=== PATIENT | male | born 1990 | race Caucasian/White ===

== ENCOUNTER 2024-02-19 19:33 | Emergency (ER) | payer SELFPAY ==
[2024-02-19 21:01] LABS: Absolute Basophils 0.1 K/uL (0-0.5); Absolute Eosinophils 0.2 K/uL (0-0.5); Absolute Lymphocytes (CBC) 1.9 K/uL (0.7-4.9); Absolute Monocytes 0.6 K/uL (0.1-1.3); Absolute Neutrophil 9.3 K/uL (1.8-8.0); Basophils % 0.5 % (0-1.3); Eosinophils % 1.4 % (0-4.4); Hematocrit 41.9 % (39.6-49.0); Hemoglobin 13.3 g/dL (13.6-17.9); Lymphocytes % 15.8 % (15.3-44.8); MCH 24.6 pg (27.0-35.0); MCHC 31.8 g/dL (32.0-36.0); MCV 77.2 fL (80-100); MPV 9.1 fL (7.6-11.3); Monocytes % 4.8 % (3.3-12.3); Neutrophils % 77.5 % (41.7-73.7); Platelets 225 thou/uL (152-406); RBC Red Blood Cell Count 5.43 M/uL (4.33-5.43)
[2024-02-19 21:04] LABS: Specific Gravity > 1.030 (1.005-1.030); Sqamous Epithelial <5 /HPF (None Seen); Urine Bacteria None Seen /HPF (<20); Urine Bilirubin NEGATIVE (Negative); Urine Blood Negative (Negative); Urine Clarity Clear (Clear); Urine Color Yellow (Yellow); Urine Culture Reflex Order NOT NEEDED; Urine Glucose TRACE (Negative); Urine Ketones TRACE (Negative); Urine Microscopic Reflex YN ORDER UMIC; Urine Mucus 2+ /HPF (None Seen); Urine Nitrite NEGATIVE (Negative); Urine Protein 1+ (Negative); Urine RBC <5 /HPF (None Seen); Urine Urobilinogen 1+ (Normal); Urine WBC <5 /HPF (<5)
[2024-02-19] MEDS ORDERED: NA CHLORIDE 0.9% 0 ML ONE (21:05)
[2024-02-19 21:21] LABS: C-Reactive Protein 36.4 mg/L (<3.00)
[2024-02-19 21:22] LABS: Albumin 2.9 g/dL (3.4-5.0); Albumin/Globulin Ratio 0.7 (1.1-1.8); Anion Gap 7.5 mEq/L (5.0-15.0); Bilirubin Total 0.4 mg/dL (0.2-1.0); Globulin 4.4 g/dL (2.3-3.5); Protein, Total 7.3 g/dL (6.4-8.2)
[2024-02-19 21:25] LABS: Potassium 4.5 mEq/L (3.5-5.1)
--- NOTE | 2024-02-19 22:31 | RAD REPORT ---
EXAMINATION: CT Abdomen Pelvis W Contrast CLINICAL INDICATION: Male, 33 years old. ABD PAIN TECHNIQUE: CT abdomen and pelvis was performed, after the administration of IV [facility] Axial, sagittal and coronal reconstructions were obtained. One or more of the following dose reduction techniques were used: Automated exposure control, adjustment of the mA and k V according to patient size, and iterative reconstruction. Unless otherwise specified, incidental findings do not require dedicated imaging follow-up. COMPARISON: No prior exam. FINDINGS: LOWER CHEST: The visualized lung bases are clear. LIVER: Mild fatty liver is present. No focal lesion or biliary dilatation is seen. BILIARY SYSTEM: No suspicious abnormalities. SPLEEN: Normal size. No focal lesion. PANCREAS: No mass, ductal dilation, or kingsley-pancreatic fluid. ADRENALS: Normal; no mass. KIDNEYS: Normal size and preserved corticomedullary differentiation. Numerous bilateral cortical hypo attenuating lesions, largest on the right is exophytic, measuring 2.5 cm, with another interpolar 2.5 cm juxtacortical lesion. All lesions demonstrate fluid density although some are less than 1 cm i n size, limiting evaluation. No hydronephrosis. URINARY BLADDER: Decompressed limiting evaluation.. GASTROINTESTINAL TRACT: Focal inflammatory changes involving the proximal to mid sigmoid colon center ed on a diverticulum projecting anteroinferiorly. No adjacent fluid collections or extraluminal gas. Moderate burden of colonic diverticula throughout the distal colon. No evidence of free air, sig nificant intra-abdominal free fluid, bowel obstruction or abscess. APPENDIX: Normal appendix. LYMPH NODES: No lymphadenopathy. MUSCULOSKELETAL: No acute or suspicious osseous abnormality. ADDITIONAL FINDINGS: None. IMPRESSION: Findings of acute uncomplicated proximal to mid sigmoid diverticulitis. Numerous renal cysts. Some of these are less than 1 cm in size, limiting evaluation. Mild diffuse hepatic steatosis.
[2024-02-19] MEDS ORDERED: NA CHLORIDE 0.9% 1,000 ML ONE (22:35)
--- NOTE | 2024-02-20 00:36 | ER ---
Nurse's Notes [facility] Name: Cristian John Age: 33 yrs Sex: Male : 1990 Arrival Date: 02/19/2024 Time: 19:33 Bed 12 Private MD: Diagnosis: Diverticulitis of small intestine without perforation or abscess without bleeding;Acute Diverticulitis , Multiple Renal Cysts, Elevated blood sugar Presentation: 02/18 19:52 Chief complaint: Patient states: FLANK PAIN THAT RADIATES TO HIS ABDOMEN ONSET 1 WEEK cm10 AGO. PT ALSO REPORTS BURNING WITH URINATION. Coronavirus screen: Client denies travel out of the [place] in the last 14 days. Ebola Screen: Patient denies travel to an Ebola-affected area in the 21 days before illness onset. Initial Sepsis Screen: Does the patient meet any 2 criteria? HR > 90 bpm. Does the patient have a suspected source of infection? No. Patient's initial sepsis screen is negative. Risk Assessment: Do you want to hurt yourself or someone else? Patient reports no desire to harm self or others. Onset of symptoms was February 19, 2024. 19:52 Method Of Arrival: Ambulatory cm10 19:52 Acuity: DERRELL 3 cm10 Triage Assessment: 19:53 General: Appears in no apparent distress. uncomfortable, Behavior is calm, cooperative. cm10 Neuro: No deficits noted. Level of Consciousness is awake, alert, obeys commands, Oriented to person, place, time, situation, Appropriate for age. Respiratory: No deficits noted. Airway is patent Respiratory effort is even, unlabored, Respiratory pattern is regular, symmetrical. Historical: - Allergies: 19:53 No Known Allergies; cm10 - PMHx: 19:53 Diverticulitis; cm10 - Immunization history:: Adult Immunizations up to date. - Infectious Disease History:: Denies. - Social history:: Smoking status: Patient reports the use of cigarette tobacco products, denies chronic smoking, but will smoke occasionally. - Family history:: not pertinent. Screenin/17 00:00 [facility] ED Fall Risk Assessment (Adult) History of falling in the last 3 months, ha1 including since admission No falls in past 3 months (0 pts) Confusion or Disorientation No (0 pts) Intoxicated or Sedated No (0 pts) Impaired Gait No (0 pts) Mobility Assist Device Used No (0 pt) Altered Elimination No (0 pt) Score/Fall Risk Level 0 - 2 = Low Risk Oriented to surroundings, Maintained a safe environment, Educated pt \T\ family on fall prevention, incl call for assistance when getting out of bed, Hourly rounding (assess needs \T\ fall precautionary measures) done. Abuse screen: Denies threats or abuse. Denies injuries from another. Nutritional screening: No deficits noted. Tuberculosis screening: No symptoms or risk factors identified. Assessment: 02/18 21:00 Reassessment: Patient and/or family updated on plan of care and expected duration. Pain ha1 level reassessed. Patient is alert, oriented x 3, equal unlabored respirations, skin warm/dry/pink. 21:00 General: Appears comfortable, Behavior is calm, cooperative. Pain: Complains of pain in ha1 pelvis Pain radiates to back Pain currently is 4 out of 10 on a pain scale. Quality of pain is described as burning. Neuro: Level of Consciousness is awake, alert, obeys commands, Oriented to person, place, time, situation. Cardiovascular: Patient's skin is warm and dry. Respiratory: Airway is patent Respiratory effort is even, unlabored, Respiratory pattern is regular, symmetrical. GI: Abdomen is round non-distended, obese, Bowel sounds present X 4 quads. Abd is soft and non tender. 22:00 Reassessment: Patient and/or family updated on plan of care and expected duration. Pain ha1 level reassessed. Patient is alert, oriented x 3, equal unlabored respirations, skin warm/dry/pink. 23:00 Reassessment: Patient and/or family updated on plan of care and expected duration. Pain ha1 level reassessed. Patient is alert, oriented x 3, equal unlabored respirations, skin warm/dry/pink. Patient states symptoms have improved. 02/19 01:16 Reassessment: DISCHARGE PENDING ON MEDICATION TO BE COMPLETED. ha1 01:42 Reassessment: Patient and/or family updated on plan of care and expected duration. Pain ha1 level reassessed. Patient is alert, oriented x 3, equal unlabored respirations, skin warm/dry/pink. Vital Signs: 02/18 19:52 BP 152 / 99; Pulse 98; Resp 18; Temp 99.5(O); Pulse Ox 99% on R/A; Weight 154.22 kg; cm10 Height 6 ft. 3 in. ; Pain 3/10; 21:00 BP 150 / 98; Pulse 97; Resp 18 S; Pulse Ox 98% on R/A; ha1 23:00 BP 146 / 94; Pulse 90; Resp 18 S; Pulse Ox 98% on R/A; ha1 02/19 01:20 BP 147 / 87; Pulse 84; Resp 18 S; Temp 97.8(T); Pulse Ox 98% on R/A; ha1 02/18 19:52 Body Mass Index 42.50 (154.22 kg, 190.5 cm) cm10 02/18 19:52 Pain Scale: Adult cm10 [place] Coma Score: 05:13 Eye Response: spontaneous(4). Motor Response: obeys commands(6). Verbal Response: sp4 oriented(5). Total: 15. ED Course: 02/18 19:36 Patient arrived in ED. im 19:53 Triage completed. cm10 19:53 Arm band placed on left wrist. Patient placed in an exam room. cm10 20:00 Patient has correct armband on for positive identification. Bed in low position. Call ha1 light in reach. Side rails up X 1. Adult w/ patient. 20:04 Kevin Brown MD is Attending Physician. sp4 20:56 Inserted saline lock: 20 gauge in right antecubital area, using aseptic technique. oe Blood collected. Flushed with 10 mL NS. 21:08 Joseline Addison, JUDY is Primary Nurse. ha1 22:00 CT Abd/Pelvis - IV Contrast Only In Process Unspecified. EDMS 02/19 00:31 Nick Tuttle MD is Referral Physician. sp4 01:43 No provider procedures requiring assistance completed. Patient did not have IV access ha1 during this emergency room visit. 01:44 Provided Education on: FOLLOW UPS AND MEDICATION ADMINISTRATION . ha1 Administered Medications: 02/18 21:13 Drug: NS 0.9% IV 1000 ml IV at 1 bolus Per protocol; to be given as a bolus over 60 ha1 minutes Route: IV; Rate: 1 bolus; Site: right antecubital; 02/19 01:04 Follow up: Response: No adverse reaction; IV Status: Completed infusion; IV Intake: ha1 1000ml 00:40 Drug: Rocephin - Rocephin (cefTRIAXone) IVPB 1 grams IVPB once over 30 mins; (mix in 50 ha1 mL NS) Route: IVPB; Infused Over: 30 mins; Site: right antecubital; 00:48 Follow up: Response: No adverse reaction; IV Status: Completed infusion; IV Intake: [id number] 00:48 Drug: metroNIDAZOLE IVPB 500 mg 100 ml IVPB at 200 ml/hr once over 30 mins Volume: 100 ha1 ml; Route: IVPB; Rate: 200 ml/hr; Infused Over: 30 mins; Site: right antecubital; 01:42 Follow up: Response: No adverse reaction; IV Status: Completed infusion; IV Intake: ha1 100ml Medication: 01:44 VIS not applicable for this client. ha1 Intake: 00:48 IV: 50ml; Total: 50ml. ha1 01:04 IV: 1000ml; Total: 1050ml. ha1 01:42 IV: 100ml; Total: 1150ml. ha1 Outcome: 00:36 Discharge ordered by MD. newell 01:43 Discharged to home ambulatory, with family, ha1 01:43 Condition: stable 01:43 Discharge instructions given to patient, family, Instructed on discharge instructions, follow up and referral plans. medication usage, Demonstrated understanding of instructions, follow-up care, medications, Prescriptions given X 2, 01:45 Patient left the ED. ha1 Signatures: Dispatcher [employer] EDMS Cody Wang Heidy RN RN ha1 Kevin Brown MD MD sp4 Leigh Davis Clarissa RN RN cm10
--- NOTE | 2024-02-20 00:36 | EDPHYS ---
Physician Documentation [facility] Name: Cristian John Age: 33 yrs Sex: Male : 1990 Arrival Date: 02/19/2024 Time: 19:33 Bed 12 Private MD: ED Physician Kevin Brown HPI: 02/18 20:04 This 33 yrs old Male presents to ER via Ambulatory with complaints of Pain sp4 With Urination, Flank Pain, Abdominal Pain, Nausea. 02/19 05:13 33-year-old male with history of prior diverticulitis presents with complaint of sp4 bilateral flank pain for approximately 1 week. Patient reports night sweats and dysuria also pain radiating to his groin. Patient does report some diffuse abdominal pain.. Historical: - Allergies: 02/18 19:53 No Known Allergies; cm10 - PMHx: 19:53 Diverticulitis; cm10 - Immunization history:: Adult Immunizations up to date. - Infectious Disease History:: Denies. - Social history:: Smoking status: Patient reports the use of cigarette tobacco products, denies chronic smoking, but will smoke occasionally. - Family history:: not pertinent. ROS: 02/19 05:13 Constitutional: Negative for fever, chills, and weight loss, positive bilateral flank sp4 pain, positive lower abdominal pain, positive groin pain. All other systems are negative, Exam: 05:13 Constitutional: This is a well developed, well nourished patient who is awake, alert, sp4 and in no acute distress. Patient is overweight male. Head/Face: Normocephalic, atraumatic. Eyes: Pupils equal round and reactive to light, extra-ocular motions intact. Lids and lashes normal. Conjunctiva and sclera are not injected. Cornea within normal limits. Periorbital areas with no swelling, redness, or edema. ENT: Nares patent. No nasal discharge, no septal abnormalities noted. Tympanic membranes are normal and external auditory canals are clear. Oropharynx with no redness, swelling, or masses, exudates, or evidence of obstruction, uvula midline. Mucous membranes moist. Neck: Trachea midline, no thyromegaly or masses palpated, and no cervical lymphadenopathy. Supple, full range of motion without nuchal rigidity, or vertebral point tenderness. Chest/axilla: Normal chest wall appearance and motion. Nontender with no deformity. No lesions are appreciated. Cardiovascular: Regular rate and rhythm with a normal S1 and S2. No gallops, murmurs, or rubs. Normal PMI, no JVD. No pulse deficits. Respiratory: Lungs have equal breath sounds bilaterally, clear to auscultation and percussion. No rales, rhonchi or wheezes noted. No increased work of breathing, no retractions or nasal flaring. Abdomen/GI: Soft, with normal bowel sounds. No distension or tympany. No guarding or rebound. Patient has obese abdomen, lower abdominal tenderness by palpation Back: No spinal tenderness. No costovertebral tenderness. Skin: Warm, dry with normal turgor. Normal color with no rashes, no lesions, and no evidence of cellulitis. MS/ Extremity: Pulses equal, no cyanosis. Neurovascular intact. Full, normal range of motion. Neuro: Awake and alert, GCS 15, oriented to person, place, time, and situation. Cranial nerves II-XII grossly intact. Motor strength 5/5 in all extremities. Sensory grossly intact. Psych: Awake, alert, with orientation to person, place and time. Behavior, mood, and affect are within normal limits Vital Signs: 02/18 19:52 BP 152 / 99; Pulse 98; Resp 18; Temp 99.5(O); Pulse Ox 99% on R/A; Weight 154.22 kg; cm10 Height 6 ft. 3 in. ; Pain 3/10; 21:00 BP 150 / 98; Pulse 97; Resp 18 S; Pulse Ox 98% on R/A; ha1 23:00 BP 146 / 94; Pulse 90; Resp 18 S; Pulse Ox 98% on R/A; ha1 02/19 01:20 BP 147 / 87; Pulse 84; Resp 18 S; Temp 97.8(T); Pulse Ox 98% on R/A; ha1 02/18 19:52 Body Mass Index 42.50 (154.22 kg, 190.5 cm) cm10 02/18 19:52 Pain Scale: Adult cm10 [place] Coma Score: 05:13 Eye Response: spontaneous(4). Motor Response: obeys commands(6). Verbal Response: sp4 oriented(5). Total: 15. MDM: 02/18 20:08 Medical Screening Exam initiated sp4 12/17 00:00 ED course: EXAMINATION: CTAbdomen Pelvis W Contrast CLINICAL INDICATION: Male, 33 years sp4 old. ABD PAIN TECHNIQUE: CT abdomen and pelvis was performed, after the administration of IV contrast, as per department protocol. Axial, sagittal and coronal reconstructions were obtained. One or more of the following dose reduction techniques were used: Automated exposure control, adjustment of the mA and kV according to patient size, and iterative reconstruction. Unless otherwise specified, incidental findings do not require dedicated imaging follow-up. COMPARISON: No prior exam. FINDINGS: LOWER CHEST: The visualized lung bases are clear. LIVER: Mild fatty liver is present. No focal lesion or biliary dilatation is seen. BILIARYSYSTEM: No suspicious abnormalities. SPLEEN: Normal size. No focal lesion. PANCREAS: No mass, ductal dilation, or kingsley-pancreatic fluid. ADRENALS: Normal; no mass. KIDNEYS: Normal size and preserved corticomedullary differentiation. Numerous bilateral cortical hypoattenuating lesions, largest on the right is exophytic, measuring 2.5 cm, with another interpolar 2.5 cm juxtacortical lesion. All lesions demonstrate fluid density although some are less than 1 cm in size, limiting evaluation. No hydronephrosis. URINARYBLADDER: Decompressed limiting evaluation.. GASTROINTESTINAL TRACT: Focal inflammatory changes involving the proximal to mid sigmoid colon centered on a diverticulum projecting anteroinferiorly. No adjacent fluid collections or extraluminal gas. Moderate burden of colonic diverticula throughout the distal colon. No evidence of free air, significant intra-abdominal free fluid, bowel obstruction or abscess. APPENDIX: Normal appendix. LYMPH NODES: No lymphadenopathy. MUSCULOSKELETAL: No acute or suspicious osseous abnormality. ADDITIONAL FINDINGS: None. IMPRESSION: Findings of acute uncomplicated proximal to mid sigmoid diverticulitis. Numerous renal cysts. Some of these are less than 1 cm in size, limiting evaluation. Mild diffuse hepatic steatosis.. 05:13 Differential diagnosis: nephrolithiasis, pyelonephritis, UTI, diverticulitis, sp4 pancreatitis. Data reviewed: vital signs, nurses notes, lab test result(s), CBC, electrolytes, hepatic panel, urinalysis, radiologic studies, CT scan. Consideration of Admission/Observation Escalation of care including admission/observation considered. ED course: CAT scan revealed proximal sigmoid diverticulitis. Diverticulitis is uncomplicated. Patient stable for discharge home with p.o. antibiotics for the next 10 days. Will prescribe cephalexin and Flagyl.. 02/18 20:04 Order name: CBC with Diff; Complete Time: 22:00 sp4 02/18 20:04 Order name: CMP; Complete Time: 22:00 sp4 02/18 20:04 Order name: Lipase; Complete Time: 22:00 sp4 02/18 20:04 Order name: Urinalysis w/ reflexes; Complete Time: 22:00 sp4 02/18 20:24 Order name: CRP; Complete Time: 22:00 sp4 02/18 20:24 Order name: BNP; Complete Time: 22:00 sp4 02/18 20:24 Order name: CT Abd/Pelvis - IV Contrast Only; Complete Time: 23:49 sp4 02/18 20:04 Order name: IV Saline Lock; Complete Time: 21:08 sp4 02/18 20:04 Order name: Labs collected and sent; Complete Time: 21:08 sp4 Administered Medications: 02/18 21:13 Drug: NS 0.9% IV 1000 ml IV at 1 bolus Per protocol; to be given as a bolus over 60 ha1 minutes Route: IV; Rate: 1 bolus; Site: right antecubital; 02/19 01:04 Follow up: Response: No adverse reaction; IV Status: Completed infusion; IV Intake: ha1 1000ml 00:40 Drug: Rocephin - Rocephin (cefTRIAXone) IVPB 1 grams IVPB once over 30 mins; (mix in 50 ha1 mL NS) Route: IVPB; Infused Over: 30 mins; Site: right antecubital; 00:48 Follow up: Response: No adverse reaction; IV Status: Completed infusion; IV Intake: [id number] 00:48 Drug: metroNIDAZOLE IVPB 500 mg 100 ml IVPB at 200 ml/hr once over 30 mins Volume: 100 ha1 ml; Route: IVPB; Rate: 200 ml/hr; Infused Over: 30 mins; Site: right antecubital; 01:42 Follow up: Response: No adverse reaction; IV Status: Completed infusion; IV Intake: ha1 100ml Disposition Summary: 02/20/24 00:36 Discharge Ordered Problem: new sp4 Symptoms: have improved sp4 Condition: Stable sp4 Diagnosis - Diverticulitis of small intestine without perforation or abscess without bleeding sp4 - Acute Diverticulitis , Multiple Renal Cysts, Elevated blood sugar sp4 Followup: sp4 - With: Nick Tuttle MD - When: 7 - 10 days - Reason: Recheck today's complaints Discharge Instructions: - Discharge Summary Sheet sp4 - Diverticulitis, [id number] sp4 - Clear Liquid Diet, Adult, [id number] sp4 Forms: - Patient Portal Instructions sp4 Prescriptions: - Cephalexin 500 mg Oral capsule - take 1 capsule ORAL route every 8 hours for 10 days for 10 day s; 30 capsule; sp4 Refills: 0, Product Selection Permitted - Flagyl 500 mg Oral Tablet - take 1 tablet ORAL route every 8 hours for 10 days; 30 tablet; Refills: 0, sp4 Product Selection Permitted Signatures: Dispatcher [employer] Joseline Cho, RN RN ha1 Kevin Brown MD MD sp4 Aaliyah Booker RN RN cm10
[2024-02-20] MEDS ORDERED: CEFTRIAXONE 1000 MG/VIAL ONE (00:47)
[2024-02-20] MEDS ORDERED: METRONIDAZOLE 500mg IVPB 500 MG/100 ML BAG IV ONE (00:48)
[2024-02-20 02:21] VITALS: O2SAT 98
[2024-02-20 02:24] VITALS: BP 147/87; TEMP 97.8
== END 2024-02-20 01:45 | disposition home or self-care (01) ==
LOC: ER 19:33
DX: K57.12 Diverticulitis of small intestine without perforation or abscess without bleeding (principal); N28.1 Cyst of kidney, acquired; R73.9 Hyperglycemia, unspecified; F17.210 Nicotine dependence, cigarettes, uncomplicated
CPT/HCPCS: 36415; 74177; 80053; 81001; 83690; 83880; 85025; 86140; 96361; 96365; 96375; 99284; J0696; J7030; Q9967